=== PATIENT | female | born 1955 | race Caucasian/White ===

== ENCOUNTER 2022-05-29 09:13 | Emergency (ER) | payer MEDICARE, SELFPAY ==
--- NOTE | 2022-05-29 09:43 | ED.SKABFB ---
HPI - Skin/Abscess/Foreign Bdy General Chief complaint: Skin/Abscess/Foreign Body Stated complaint: RASH Time Seen by Provider: 05/29/22 09:43 Source: patient Mode of arrival: ambulatory Limitations: no limitations History of Present Illness HPI narrative: 66-year-old female presented for complaint of multiple red bumps on arms for about 2 weeks. Endorses new bumps to leg and back. They are itching. Denies pain or drainage to the sites. She has been using [id number] lotions without relief. Denies changes to soap, detergent, lotion etc. complaint: rash Related Data Home Medications Medication Instructions Recorded Confirmed celecoxib 200 mg capsule 200 mg PO BID 05/29/22 05/29/22 etanercept 50 mg/mL (1 mL) 50 mg subcut WEEKLY 05/29/22 05/29/22 subcutaneous syringe (Enbrel) prednisone 50 mg tablet 50 mg PO DAILY 05/29/22 05/29/22 Allergies Allergy/AdvReac Type Severity Reaction Status Date / Time Sulfa (Sulfonamide Allergy Hives Verified 05/29/22 09:32 Antibiotics) Review of Systems Review of Systems: CONSTITUTIONAL: Denies body aches, fever, chills, or sweats. EYES: Denies visual changes, redness, or discharge. ENT: Denies rhinorrhea, congestion, sore throat, or otalgia. CARDIOVASCULAR: Denies chest pain, palpitations, or edema. RESPIRATORY: Denies cough or dyspnea. GASTROINTESTINAL: Denies abdominal pain, nausea, vomiting, or diarrhea. GENITOURINARY: Denies dysuria or hematuria. SKIN: rash, itching, wounds. MUSCULOSKELETAL: Denies back pain, joint pain, or myalgia. NEUROLOGIC: Denies headache, numbness, tingling, or weakness. PSYCH: Denies depression or anxiety. PMFSH Comments At time of signature, I have reviewed and agree with nursing past medical, surgical, social and family history unless otherwise noted. Please see nursing chart for further information. There is no relevant family history pertinent to the presenting complaint Exam Narrative: GENERAL: Well-appearing. EYES: conjunctivae clear, and EOMI. ENT: Mucous membranes moist. Oropharynx without edema, erythema or lesions. CHEST: Clear to auscultation. No respiratory distress. HEART: Regular rate and rhythm. SKIN: Warm, dry. Patches of erythematous round raised lesions to bilateral forearms, one lesion to left inner thigh. Lesions approx 3mm diameter. No drainage or fluctuance. Bilateral forearms with purpura. NEURO: Alert and oriented x3. PSYCH: Normal mood and affect Course Course Emergency Course: Patient is aware of diagnosis, understands and agrees to treatment plan. Anticipatory guidance given. Patient agrees to follow-up as directed and is aware of reasons to seek care at the emergency department. Portions of this record may have been created with voice recognition software Level of Care: Express Care Visit Vital Signs Vital signs: Reviewed MDM - Skin/Abscess/Foreign Bdy MDM Narrative Medical decision making narrative: Pt has been working outside in the yard. Skin lesions appear c/w insect bites. Takes daily prednisone for RA. Advised supportive treatments. Aware of signs and symptoms to go to the ER. Appropriate for outpt treatment and f/u with pcp. Differential Diagnosis Differential diagnosis: Likely viral exanthem, urticaria, herpes zoster, insect bites and contact dermatitis Discharge Plan Discharge Clinical Impression: Dermatitis Patient Disposition: Home, Self-Care Condition: Stable Instructions: Dermatitis (ED) Additional Instructions: Wash with gentle soap and water only. Use skin cream as prescribed to reduce itchiness Benadryl every 8 hours as needed for itching, or Zyrtec as directed Avoid scratching when possible to prevent worsening of the condition and disruption of the skin that could lead to bacterial infection To relieve itching, place a cool washcloth or some ice over the area that itches, rather than scratching Follow up with primary care provider in 1 week ER if rash
== END 2022-05-29 10:04 | disposition home or self-care (01) ==
PROVIDERS: Emergency Provider Nurse Practitioner Family
DX: L30.9 Dermatitis, unspecified (principal); M06.9 Rheumatoid arthritis, unspecified
CPT/HCPCS: 99213; G0463

== ENCOUNTER 2023-01-07 17:50 | Emergency (ER) | payer MEDICARE, SELFPAY ==
[2023-01-07] VITALS (9 sets, daily range): BP systolic 134–160; BP diastolic 76–86; PULSE 73–83; RESP 16; TEMP 36.7–37.3; O2SAT 97–100
--- NOTE | ~2023-01-07 | CT_ITS ---
EXAMINATION: CT abdomen pelvis wo con DATE: 01/07/2023 22:58 INDICATION: Left lower quadrant abdominal pain. TECHNIQUE: Computed tomography (CT) of the abdomen and pelvis was performed without intravenous contr ast. Automated exposure control and iterative reconstruction technique were employed. The dose-length product was 294.54 mGy-cm. COMPARISON: None. FINDINGS: The visualized portions of the lung bases demonstrate mild emphysema. No pleural effusion. The heart size is normal. No pericardial effusion. There is diffuse hepatic steatosis. The gallbladde r, spleen, pancreas, adrenal glands, and kidneys are normal. There is no urolithiasis. There are scat tered diverticula in the colon. There is wall thickening of the sigmoid colon with surrounding fat st randing. There are no dilated loops of bowel. The appendix is not visualized. There is a calcified fi broid in the uterus. There are no pathologically enlarged lymph nodes. There is no free intraperitone al fluid. There are changes of anterior and posterior fusion procedures at L5-S1. There is severe lum bar and thoracic spondylosis. IMPRESSION: 1. Sigmoid diverticulitis. No perforation or abscess. 2. No urolithiasis. Reviewed, dictated and finalized at location A. TS ASSOCIATE
--- NOTE | 2023-01-07 23:10 | PC.NURSE ---
Pt. ambulatory to restroom, gait steady
[2023-01-07] MEDS: MORPHINE SULFATE (*CRX) 4 MG/ML INJ IV PUSH (23:12)
[2023-01-07] MEDS: SODIUM CHLORIDE 0.9% IV 1,000 ML 999 ML IV CONT (23:12)
[2023-01-07] MEDS: ONDANSETRON INJ 4 MG/2 ML VIAL IV PUSH (23:12)
[2023-01-07 23:17] LABS: Basophils Percent Auto 0.2 % (0.2-1.2); Eosinophils Percent Auto 0.2 % (0-4.4); Hematocrit 40.4 % (37.0-47.0); Hemoglobin 13.2 g/dL (12.0-15.0); Immature Granulocyte Absolute 0.11 K/mm3 (0.00-0.031); Immature Granulocyte Percent A 0.6 % (0-0.5); Lymphocytes Absolute Auto 0.91 K/mm3 (0.9-3.2); Lymphocytes Percent Auto 5.2 % (18.3-44.2); Mean Corpuscular HGB Conc 32.7 g/dl (32-36); Mean Corpuscular Volume 97.8 fl (80-100); Mean Platelet Volume 8.3 fl (7.4-10.4); Monocytes Absolute Auto 1.9 K/mm3 (0.1-0.6); Monocytes Percent Auto 10.6 % (2.6-8.5); Neutrophils Absolute Auto 14.7 K/mm3 (1.3-6.7); Neutrophils Percent Auto 83.2 % (45.5-73.1); Platelet Count Result 255 k/mm3 (150-375); Red Blood Count 4.13 M/mm3 (4.2-5.4); Red Cell Distribution Width 12.3 % (11.5-14.5); White Blood Count 17.7 K/mm3 (4.5-10.0)
[2023-01-07 23:29] LABS: Appearance Urine Clear (Clear); Bilirubin Urine 1+ (Negative); Blood Urine Negative (Negative); Color Urine Yellow (Yellow); Glucose Urine UA Negative (Negative); Ketones Urine 3+ mg/dL (Negative); Leukocyte Esterase Ur Negative LEU/UL (Negative); Nitrate Urine Negative (Negative); Protein Urine 2+ mg/dL (Negative); Specific Grav Ur 1.025 (1.001-1.035); Urobilinogen Urine 0.2 mg/dL (<2.0)
[2023-01-07 23:29] LABS: Alanine Aminotransferase 16 U/L (6-35); Albumin Level 4.2 g/dL (3.5-5.1); Alkaline Phosphatase 96 U/L (38-126); Anion Gap 6 mmol/L (8-16); Aspartate Amino Transferase 26 U/L (14-36); Blood Urea Nitrogen 13 mg/dL (7-17); Calcium 9.2 mg/dL (8.4-10.2); Carbon Dioxide 27 mmol/L (22-30); Chloride 105 mmol/L (98-107); Estimated Glomerular Filt Rate > 60; Glucose 121 mg/dL (65-110); Lipase 24 U/L (23-300); Potassium 4.5 mmol/L (3.4-5.0); Sodium 138 mmol/L (137-145)
[2023-01-07 23:31] LABS: Bacteria Urine Trace /hpf; Mucus Urine Rare /lpf; RBC Urine 0-2 /hpf (0-2); Squamous Epithelial Cell Urine Rare /hpf (Few); WBC Urine 0-3 /hpf
[2023-01-07 23:39] LABS: Add Urine Microscopic? YES
[2023-01-08] VITALS (7 sets, daily range): BP systolic 131–135; BP diastolic 72–78; PULSE 84; RESP 17; TEMP 36.6; O2SAT 90–100
--- NOTE | 2023-01-08 00:12 | ED.GENADULT ---
HPI - General Adult General Chief complaint: Abdominal Pain Stated complaint: abdominal pain Time Seen by Provider: 01/07/23 22:41 History of Present Illness HPI narrative: Patient 67-year-old female who presents the emergency department with chief complaint of abdominal pain. The patient reports that she has been seeing her primary care provider was diagnosed with a UTI about 5 days ago was treated with Cipro and they changed her antibiotic to Macrobid today the patient has not picked up the Macrobid yet but reports that her abdomen has become progressively more uncomfortable. Patient reports she had some nausea and vomiting with this as well denies fever and denies diarrhea. Related Data Home Medications Medication Instructions Recorded Confirmed celecoxib 200 mg capsule 200 mg PO BID 05/29/22 05/29/22 etanercept 50 mg/mL (1 mL) 50 mg subcut WEEKLY 05/29/22 05/29/22 subcutaneous syringe (Enbrel) prednisone 50 mg tablet 5 mg PO DAILY 05/29/22 05/31/22 Allergies Allergy/AdvReac Type Severity Reaction Status Date / Time Sulfa (Sulfonamide Allergy Hives Verified 05/29/22 09:32 Antibiotics) Review of Systems Review of Systems: A 10 system review of systems was completed on the patient and is negative except for what is stated in the HPI. Nursing and ancillary documentation was reviewed. Exam Narrative: GENERAL: Well-appearing, well-nourished, and in no acute distress. HEAD: Normocephalic, atraumatic. EYES: PERRLA and EOMI. ENT: Nares clear, no rhinorrhea or epistaxis. Mucous membranes moist. NECK: Supple. CHEST: Clear to auscultation. No respiratory distress. HEART: Regular rate and rhythm. No murmur heard. Normal peripheral pulses. ABDOMEN: Soft, tender to palpation in the lower quadrants of the abdomen worse in the left lower quadrant, nondistended, normal active bowel sounds. EXTREMITIES: Normal range of motion. No edema. SKIN: Warm, dry, no rash. NEURO: No focal deficits. Alert and oriented x3. PSYCH: Normal mood and affect. Course Vital Signs Vital signs: Vital Signs Temperature 37.3 C 01/07/23 18:51 Pulse Rate 73 01/07/23 18:51 Blood Pressure 156/85 H 01/07/23 18:51 Pulse Oximetry 100 01/07/23 18:51 Oxygen Delivery Room Air 01/07/23 18:51 Temperature 36.7 C 01/07/23 21:18 Pulse Rate 83 01/07/23 21:18 Respiratory Rate 16 01/07/23 21:18 Blood Pressure 160/77 H 01/07/23 21:18 Pulse Oximetry 100 01/07/23 21:18 Oxygen Delivery Room Air 01/07/23 18:51 Medical Decision Making MDM Narrative Medical decision making narrative: Differential diagnosis includes pyelonephritis, UTI, diverticulitis, bowel perforation, intra-abdominal abscess. Laboratory studies were obtained which showed a white blood cell count of 17.7. Patient is currently afebrile with stable vital signs and is feeling much better Electrolytes were within normal limits with the exception of a blood sugar of 129. Urinalysis showed 0-3 WBCs in the urine negative leukocyte esterase and negative nitrate. CT scan of the abdomen pelvis showed no evidence of obstructing stone but did show evidence of acute diverticulitis. Patient will be started on Augmentin and will be given a dose in the emergency department as well as given a prescription for pain medications. Vital Signs Vital Signs: Vital Signs Temperature 37.3 C 01/07/23 18:51 Pulse Rate 73 01/07/23 18:51 Blood Pressure 156/85 H 01/07/23 18:51 Pulse Oximetry 100 01/07/23 18:51 Oxygen Delivery Room Air 01/07/23 18:51 Temperature 36.7 C 01/07/23 21:18 Pulse Rate 83 01/07/23 21:18 Respiratory Rate 16 01/07/23 21:18 Blood Pressure 160/77 H 01/07/23 21:18 Pulse Oximetry 100 01/07/23 21:18 Oxygen Delivery Room Air 01/07/23 18:51 Lab Data 01/07/23 23:06 01/07/23 23:06 Labs: Lab Results 01/07/23 01/07/23 01/07/23 Range/Units 23:06 23:06 23:11 WBC 17.7 H
[2023-01-08] MEDS: AMOXICILLIN/CLAVULANATE K 875-125 MG TAB 1 TABLET PO (00:59)
== END 2023-01-08 01:08 | disposition home or self-care (01) ==
PROVIDERS: Emergency Provider Emergency Medicine
DX: K57.32 Diverticulitis of large intestine without perforation or abscess without bleeding (principal); N39.0 Urinary tract infection, site not specified
CPT/HCPCS: 36415; 74176; 80053; 81001; 83690; 85025; 96361; 96374; 96375; 99284; A9270; J2270; J2405; J7030